=== PATIENT | female | born 1975 | race American Indian/Alaskan Native ===

== ENCOUNTER 2017-11-21 08:08 | Outpatient (CLI) | payer MEDICAID ==
--- NOTE | 2017-11-21 11:09 | Cat Scan Report ---
CT ABDOMEN AND PELVIS WITH CONTRAST: 11/21/17 08:08:00 CLINICAL: Uterine fibroids. COMPARISON: None. TECHNIQUE: Volumetric acquisition and 1.25 millimeter scan reconstructions after the uneventful intravenous injection of 100 cc Omnipaque 300. Consent was obtained prior to the administration of contrast. Oral contrast was also given. FINDINGS: Abdomen: Normal liver, bile ducts and gallbladder. A moderate size hiatal hernia but otherwise normal stomach. Normal duodenum, pancreas and spleen. Normal adrenal glands and kidneys. Physiologic distention of the renal collecting systems. Mild dilatation of the right ureter to the pelvic inlet. However, no ureteral calculus. Normal aorta and inferior vena cava. The small bowel is normal.Normal ascending, transverse and descending colon. An appendix is not identified. No mass, lymphadenopathy or ascites.No pneumoperitoneum. Pelvis: A mildly enlarged fibroid uterus measures 13.2 cm in length by 6.1 cm AP dimension by 8.2 cm transverse dimension. Mild leftward bulge of the posterior lower uterine segment is consistent with several small subserosal fibroids but fibroid margins are not optimally delineated. At least one posterior lower uterine segment subserosal fibroid measures 1.8 cm. Normal uterine cavity with an IUD in normal position. Ovaries are normal. A dominant follicle the left ovary measures 1.8 cm. No adnexal mass or free fluid. Normal urinary bladder. Normal rectum and sigmoid colon. Bones are normal. IMPRESSION:1. Uterine leiomyomata with a mildly enlarged uterus and several small posterior lower uterine segment subserosal fibroids. 2. IUD in normal position. 3. Normal ovaries. 5. Physiologic distention of the renal collecting systems and no hydronephrosis. Mild right ureteral dilatation with no obstructing lesion. 6. Hiatal hernia.
== END 2017-11-21 08:09 | disposition home or self-care (01) ==
LOC: SPVIMAG 08:08
PROVIDERS: ATTEND Obstetrics & Gynecology
DX: D25.2 Subserosal leiomyoma of uterus (principal); K44.9 Diaphragmatic hernia without obstruction or gangrene; N28.82 Megaloureter; Z97.5 Presence of (intrauterine) contraceptive device
CPT/HCPCS: 74177; Q9967

== ENCOUNTER 2018-04-08 08:12 | Outpatient (CLI) | payer MEDICAID ==
--- NOTE | 2018-04-08 15:00 | Mammography Report ---
BILATERAL DIGITAL SCREENING MAMMOGRAM WITH CAD:04/08/18 08:30:00 CLINICAL: Baseline screening. FINDINGS: The breasts are heterogeneously dense, which may obscure small masses. A right focal asymmetry on MLO and exaggerated CC views and a left upper asymmetry on the MLO view require additional imaging. No architectural distortion or suspicious calcifications. IMPRESSION: Bilateral asymmetries requiring further workup. BI-RADS CATEGORY: 0 -- Needs Additional Imaging RECOMMENDATION: Recall for bilateral true lateral and bilateral spot compression views and bilateral breast ultrasound if needed. ACR BI-RADS MAMMOGRAPHIC CODES: 0 = Needs additional imaging evaluation; 1 = Negative; 2 = Benign; 3 = Probably benign; 4 = Suspicious; 5 = Malignant; 6 = Known biopsy-proven malignancy COMMENT: 1. Dense breast tissue, i.e., adenosis, fibrocystic changes, etc., may obscure an underlying neoplasm. 2. Approximately 10% of cancers are not detected with mammography. 3. A negative mammography report should not delay biopsy if a clinically suspicious mass is present.
== END 2018-04-08 08:13 | disposition home or self-care (01) ==
LOC: SPVWC 08:12
PROVIDERS: ATTEND Obstetrics & Gynecology
DX: Z12.31 Encounter for screening mammogram for malignant neoplasm of breast (principal)
CPT/HCPCS: 77067

== ENCOUNTER 2018-04-20 08:51 | Outpatient (CLI) | payer MEDICAID ==
--- NOTE | 2018-04-20 10:56 | Ultrasound Report ---
Bilateral mammogram and bilateral breast ultrasound: Call back for asymmetries on recent screening exam. The additional compression imaging of the right breast again demonstrates a circumscribed 7 mm density in the far lateral breast which is not identified in the compression lateral projection. There is a somewhat ill-defined area of increased parenchymal density in the superior mid left breast showing no definable mass nor architectural distortion. Imaging of the right breast demonstrates a small cyst measuring just under 3 mm in the 9:00 location in a circumscribed homogeneous hypodensity measuring just under 4 mm in the 10:00 location 9 cm from the nipple. Imaging of the superior left breast showed no echogenic abnormalities. Impression: 1. It's unclear as to whether any of the ultrasound findings correlate with the mammographic density in the right breast. Neither mammographic nor ultrasound findings however have suspicious characteristics and are probably benign. 2. No suspicious findings in the left breast. Recommendation: Repeat bilateral mammogram in 6 months to reevaluate for any progressive change. The findings and recommendations have been discussed with the patient. BI-RADS CATEGORY: 3 = Probably benign ACR BI-RADS MAMMOGRAPHIC CODES: 0 = Needs additional imaging evaluation; 1 = Negative; 2 = Benign; 3 = Probably benign; 4 = Suspicious; 5 = Malignant; 6 = Known biopsy-proven malignancy COMMENT: 1. Dense breast tissue, i.e., adenosis, fibrocystic changes, etc., may obscure an underlying neoplasm. 2. Approximately 10% of cancers are not detected with mammography. 3. A negative mammography report should not delay biopsy if a clinically suspicious mass is present.
== END 2018-04-20 08:52 | disposition home or self-care (01) ==
LOC: SPVWC 08:51
PROVIDERS: ATTEND Obstetrics & Gynecology
DX: R92.8 Other abnormal and inconclusive findings on diagnostic imaging of breast (principal)
CPT/HCPCS: 77066

== ENCOUNTER 2019-04-14 08:32 | Outpatient (CLI) | payer MEDICAID ==
--- NOTE | 2019-04-14 10:33 | Mammography Report ---
BILATERAL DIGITAL SCREENING MAMMOGRAM with CAD: 04/14/19 08:32:00 CLINICAL: Routine screening. COMPARISON:04/20/18 FINDINGS: The breasts are heterogeneously dense, which may obscure small masses. No mass, architectural distortion or suspicious calcifications. IMPRESSION: No mammographic evidence of malignancy. BI-RADS CATEGORY: 1 - - Negative RECOMMENDATION: Routine mammographic screening in one year. COMMENT: Patient follow-up letters are generated by our [employer] application.
== END 2019-04-14 08:33 | disposition home or self-care (01) ==
LOC: SPVWC 08:32
PROVIDERS: ATTEND Obstetrics & Gynecology
DX: Z12.31 Encounter for screening mammogram for malignant neoplasm of breast (principal)
CPT/HCPCS: 77067

== ENCOUNTER 2020-04-18 09:05 | Outpatient (CLI) | payer MEDICAID | END 2020-04-18 09:06 | disposition home or self-care (01) | LOC: SPVWC 09:05 | PROVIDERS: ATTEND Obstetrics & Gynecology | DX: Z12.31 Encounter for screening mammogram for malignant neoplasm of breast (principal) | CPT/HCPCS: 77067 ==

== ENCOUNTER 2021-04-19 09:40 | Outpatient (CLI) | payer MEDICAID ==
--- NOTE | 2021-04-20 08:25 | Mammography Report ---
DIGITAL SCREENING MAMMOGRAM WITH CAD, 04/19/2021 CLINICAL INFORMATION / INDICATION: Routine screening mammography. TECHNIQUE: Digital bilateral 2D mammography was obtained in the craniocaudal and mediolateral obliqu e projections. This examination was interpreted with the benefit of Computer-Aided Detection analysis . COMPARISON: 04/18/2020, 04/14/2019, 10/13/2018 FINDINGS: Breast Density: The breasts are heterogeneously dense, which may obscure small masses. No dominant mass, suspicious calcifications, or architectural distortion in the left breast. There is a new focal asymmetry in the medial aspect of the right breast middle depth which will requi re additional evaluation. IMPRESSION: New right breast asymmetry as described require additional evaluation with spot ration vi ews and possible ultrasound. Follow up recommendation: Special View: Spot BI-RADS Category 0: Incomplete. Needs additional imaging evaluation and/or prior mammograms for angela rison. A "normal" or negative report should not discourage follow up or biopsy of a clinically significant f inding. A written summary of these findings will be mailed to the patient. The patient will be entered into a mammography reporting system which will generate a reminder letter for the patient's next appointmen t at the appropriate interval. The [employer] recommends yearly mammograms starting at age 40 and continuing as l kanika as a woman is in good health. Breast MRI is recommended for women with an approximate 20-25% or greater lifetime risk of breast cancer, including women with a strong family history of breast or ova balbir cancer or who have been treated for Hodgkin's disease. Signer Name: Diana Guerra MD Signed: 04/20/2021 8:21 AM Workstation Name: [id number]
== END 2021-04-19 09:41 | disposition home or self-care (01) ==
LOC: SPVWC 09:40
PROVIDERS: ATTEND Obstetrics & Gynecology
DX: Z12.31 Encounter for screening mammogram for malignant neoplasm of breast (principal)
CPT/HCPCS: 77067

== ENCOUNTER 2021-05-16 08:40 | Outpatient (CLI) | payer MEDICAID ==
--- NOTE | 2021-05-16 09:47 | Mammography Report ---
DIGITAL DIAGNOSTIC MAMMOGRAM WITH CAD CONVENTIONAL, 05/16/2021 CLINICAL INFORMATION / INDICATION: ABNORMAL FINDING ON MAMMOGRAPHY/DENSE BREAST TISSUE TECHNIQUE: Digital right mammographic imaging was performed. Spot compression views were obtained. This examination was interpreted with the benefit of Computer-aided Detection analysis. COMPARISON: 04/19/21. FINDINGS: Breast Density: The breasts are heterogeneously dense, which may obscure small masses. No dominant mass, suspicious calcifications or architectural distortion in the right breast. No persistent asymmetry is seen on spot compression. IMPRESSION: No mammographic evidence of malignancy. Follow up recommendation: Routine yearly BI-RADS Category 1: Negative. A "normal" or negative report should not discourage follow up or biopsy of a clinically significant f inding. A written summary of these findings will be mailed to the patient. The patient will be entered into a mammography reporting system which will generate a reminder letter for the patient's next appointmen t at the appropriate interval. According to the [employer], yearly mammograms are recommended starting at age 40 and continuing as long as a woman is in good health. Breast MRI is recommended for women with an byron roximately 20-25% or greater lifetime risk of breast cancer, including women with a strong family his tory of breast or ovarian cancer and women who have been treated for Hodgkin's disease. Signer Name: Candido Collins MD Signed: 05/16/2021 9:42 AM Workstation Name: [email or web address]
== END 2021-05-16 08:41 | disposition home or self-care (01) ==
LOC: SPVWC 08:40
PROVIDERS: ATTEND Obstetrics & Gynecology
DX: R92.8 Other abnormal and inconclusive findings on diagnostic imaging of breast (principal)

== ENCOUNTER 2022-04-23 09:10 | Outpatient (CLI) | payer MEDICAID ==
--- NOTE | 2022-04-24 08:40 | Mammography Report ---
DIGITAL SCREENING MAMMOGRAM WITH CAD, 04/23/2022 CLINICAL INFORMATION / INDICATION: Routine screening mammography TECHNIQUE: Digital 2D mammography was obtained in the craniocaudal and mediolateral oblique projectio ns. This examination was interpreted with the benefit of Computer-Aided Detection analysis. COMPARISON: 04/19/2021 FINDINGS: Breast Density: There are scattered areas of fibroglandular density. No dominant mass, suspicious calcifications, or architectural distortion in either breast. IMPRESSION: No mammographic evidence of malignancy. Follow up recommendation: Routine yearly screening mammogram. BI-RADS Category 1: NEGATIVE A "normal" or negative report should not discourage follow up or biopsy of a clinically significant f inding. A written summary of these findings will be mailed to the patient. The patient will be entered into a mammography reporting system which will generate a reminder letter for the patient's next appointmen t at the appropriate interval. The [employer] recommends yearly mammograms starting at age 40 and continuing as l kanika as a woman is in good health. Breast MRI is recommended for women with an approximate 20-25% or greater lifetime risk of breast cancer, including women with a strong family history of breast or ova balbir cancer or who have been treated for Hodgkin's disease. Signer Name: Joaquín Dubois MD Signed: 04/24/2022 8:36 AM Workstation Name: [id number]
== END 2022-04-23 09:11 | disposition home or self-care (01) ==
LOC: SPVWC 09:10
PROVIDERS: ATTEND Obstetrics & Gynecology
DX: Z12.31 Encounter for screening mammogram for malignant neoplasm of breast (principal)
CPT/HCPCS: 77067